=== PATIENT | male | born 1985 | race Caucasian/White ===

== ENCOUNTER 2017-09-14 23:03 | Emergency (ER) | payer OTHER ==
[~2017-09-14] VITALS: Ht 177.8 cm; Wt 77.1 kg
[~2017-09-14 23:03] MED LIST: MEDROLDOSEPACK PO; TRIAMCINOLONE 080 G3 TP
[2017-09-15 00:14] LABS: AMP/METHAMP Negative (Negative); BARBITURATES Negative (Negative); BENZODIAZEPINES Negative (Negative); COCAINE Negative (Negative); METHADONE Negative (Negative); OPIATES Negative (Negative); PCP Negative (Negative); THC Negative (Negative)
[2017-09-15 00:17] LABS: HEMATOCRIT 42.5 % (42.0-52.0); HEMOGLOBIN 14.5 gm/dL (14.0-18.0); MCH 30.3 pg (26.0-34.0); MCHC 34.1 g/dL (28.0-37.0); MPV 8.1 fl. (7.2-11.1); RBC 4.77 mil/uL (4.50-6.00); RDW-CV 13.4 % (10.5-14.5); WBC 7.2 thou/uL (4.0-11.0)
[2017-09-15 00:22] LABS: CALCIUM 8.8 mg/dL (8.5-10.1); CREATININE 1.1 mg/dL (0.6-1.3); POTASSIUM 4.6 mmol/L (3.5-5.1)
[2017-09-15 00:26] LABS: ALBUMIN 4.2 g/dL (3.4-5.0); TOTAL BILIRUBIN 0.3 mg/dL (<0.1-1.0); TOTAL PROTEIN 7.7 g/dL (6.4-8.2)
[2017-09-15 00:26] LABS: URINE BILIRUBIN NEGATIVE (Negative); URINE BLOOD NEGATIVE (Negative); URINE CLARITY CLEAR; URINE COLOR YELLOW; URINE GLUCOSE-RANDOM NEGATIVE (Negative); URINE KETONES NEGATIVE (Negative); URINE LEUKOCYTES NEGATIVE (Negative); URINE NITRITE NEGATIVE (Negative); URINE PROTEIN NEGATIVE (Negative); URINE SPECIFIC GRAVITY 1.025 (1.005-1.030); URINE UROBILINOGEN 0.2 E.U./dl (0.2-1.0)
[2017-09-15 00:33] LABS: ALCOHOL 21 mg/dL (<10); SALICYLATE < 2.8 mg/dL (2.8-20.0)
[2017-09-15 00:34] LABS: ACETAMINOPHEN < 2 ug/mL (10-30)
[2017-09-15 07:10] VITALS: BP 132/86
== END 2017-09-15 07:12 ==
LOC: M.ERS 23:03
PROVIDERS: Personal Emergency Response Attendant
DX: R45.851 Suicidal ideations (principal)